=== PATIENT | female | born 1975 | race Two or more races ===

== ENCOUNTER → 2025-04-17 | Outpatient (CLI) | payer MEDICAID, SELFPAY ==
--- NOTE | 2025-04-17 16:22 | XR_ITS ---
Examination: Shoulder, right, 3 views Technique: Shoulder AP internal rotation, AP external rotation, Y view shoulder, 3 views Exam date and time : April 17, 2025, 1627 hours INDICATIONS: Right shoulder pain beginning 3 weeks ago. FINDINGS: Mild osteoarthritis glenohumeral joint No shoulder fracture or dislocation Mild right shoulder calcific tendinitis No fracture IMPRESSION: Mild osteoarthritis glenohumeral joint Mild right shoulder calcific tendinitis
== END | disposition home or self-care (01) ==
LOC: CDIM 16:16
PROVIDERS: PCP Physician Assistant; Referring Provider Physician Assistant; Visit Provider Physician Assistant
DX: M25.511 Pain in right shoulder (principal); M75.31 Calcific tendinitis of right shoulder
CPT/HCPCS: 73030